=== PATIENT | female | born 1950 | race Two or more races ===

== ENCOUNTER 2021-12-13 20:32 | Emergency (ER) | payer OTHER, BC ==
[~2021-12-13] VITALS: Ht 165.1 cm; Wt 76.7 kg
[2021-12-13] MEDS ORDERED: PANTOPRAZOLE SO20 MG PO (21:07)
== END 2021-12-14 00:22 | disposition home or self-care (01) ==
LOC: ER 20:32
DX: N39.0 Urinary tract infection, site not specified (principal)